=== PATIENT | female | born 1965 | race Caucasian/White ===

== ENCOUNTER 2016-08-07 10:54 | Inpatient (IN) | payer BC ==
[2016-08-07 17:54] LABS: Hematocrit 41 % (35-47); Hemoglobin 13.7 g/dl (12.0-16.0); Mean Corpuscular HGB Conc 34 g/dl (31-36); Mean Corpuscular Hemoglobin 31 pg (27-31); Mean Corpuscular Volume 91 fL (80-97); Mean Platelet Volume 8 um3 (7.4-10.4); Red Blood Count 4.44 10^6/ul (4.0-5.4); Red Cell Distribution Width 13 % (10.5-15)
--- NOTE | 2016-08-07 17:55 | RAD ---
INDICATION: Fever COMPARISON: December 23, 2010 TECHNIQUE: An AP portable view obtained at 1744 hours is submitted. FINDINGS: Bones/Soft Tissues: There are no acute bony findings. Cardiomediastinal: The cardiomediastinal silhouette is normal. Lungs: There are no infiltrates. Pleura: There are no pleural effusions. Other: None IMPRESSION: NO ACTIVE DISEASE.
[2016-08-07 18:11] LABS: Urine Bacteria Absent (Absent); Urine Bilirubin Negative (Negative); Urine Glucose Negative (Negative); Urine Nitrite Negative (Negative)
[2016-08-07 18:13] LABS: Albumin 4.7 g/dL (3.2-5.2); BUN/Creatinine Ratio 16.7 (8-20); Calcium 10.1 mg/dL (8.6-10.3); EGFR African American 121.4 (>60); EGFR Non-African American 94.4 (>60); Globulin 3.3 g/dL (2-4); Potassium 3.6 mmol/L (3.5-5.0); Troponin I 0.01 ng/mL (<0.04)
[2016-08-07] MEDS ORDERED: Iohexol 300* (CONTRAST) 10 ML SDV IV ONE (18:38)
[2016-08-07] MEDS ORDERED: Ondansetron INJ* 2 MG/ML VIAL IV ONE (18:56)
[2016-08-07] MEDS ORDERED: NS 0.9% 1000 ML* 1,000 ML IV ONE (18:56)
[2016-08-07] MEDS ORDERED: Morphine INJ* 4 MG/ML 1 ML CARPUJECT IV ONE (18:56)
[2016-08-07] MEDS ORDERED: Acetaminophen TAB* 325 MG PO ONE (18:57)
--- NOTE | 2016-08-07 19:40 | RAD ---
INDICATION: Left lower quadrant pain COMPARISON: CT December 16, 2013 TECHNIQUE: Axial source images were obtained from the hemidiaphragms to the symphysis pubis following administration of oral and intravenous contrast. 71 mL Omnipaque 300 was utilized. Coronal and sagittal reconstructed images were acquired. Lung bases: The lung bases are clear. Liver: The liver is normal in size. There are no masses. There is no ductal dilatation. Gallbladder: Cholecystectomy. Spleen: The spleen is normal in size. There are no masses. Pancreas: There is no focal pancreatic mass or ductal dilatation. Adrenal glands: There is no evidence of adrenal mass. Kidneys: The kidneys are normal in size and position. There are prompt nephrograms and there is prompt excretion bilaterally. There are no renal parenchymal masses. There is no evidence of nephrolithiasis. Adenopathy: There is no evidence of adenopathy by size criteria. Fluid collections: There are no free or localized fluid collections. Vessels:There are no significant atherosclerotic changes involving the aorta. There is no focal aneurysm. The iliac vessels are normal in caliber. The IVC appears normal. GI tract: The stomach and upper GI tract are unremarkable. There is moderate stool in the a ascending colon. There is focal wall thickening and perienteric infiltrative change at the level of the splenic flexure. This may be inflammatory but a mass is not excluded. There is a tiny punctate focus of air which appears extraluminal and may be related to a contained perforation. The descending colon is very redundant. There are scant diverticula. Suggest follow-up colonoscopy Pelvic organs: The uterus and adnexa appear normal Bladder: There are no bladder masses. Abdominal and pelvic soft tissues: The extraperitoneal abdominal and pelvic soft tissues appear normal.. Osseous structures: There are no acute osseous findings. Other: None IMPRESSION: SUSPECT INFLAMMATORY CHANGE AT THE LEVEL OF THE SPLENIC FLEXURE PERHAPS WITH A CONTAINED PERFORATION. LESS LIKELY THERE IS AN UNDERLYING MASS LESION. SUGGEST FOLLOW-UP COLONOSCOPY
[2016-08-07] MEDS ORDERED: Ciprofloxacin 400MG IVPREMIX(* 400 MG/200 ML BAG IVPB ONE (20:23)
[2016-08-07] MEDS ORDERED: metroNIDAZOLE IV 500 MG/100ML* 500 MG/100 ML BAG IVPB ONE (20:24)
[2016-08-07] MEDS ORDERED: Morphine INJ* 2 MG/ML 1 ML CARPUJECT ONE (21:25)
[2016-08-07] MEDS: Morphine INJ* 2 MG/ML 1 ML CARPUJECT IV PRN (21:33)
[2016-08-07 21:58] LABS: C Reactive Protein 90.77 mg/L (< 5.00)
[2016-08-07] MEDS: Acetaminophen TAB* 325 MG PO PRN (23:07)
[2016-08-07] MEDS: NS 0.9% 1000 ML* 1,000 ML IV SCH (23:17)
[2016-08-07] MEDS: Enoxaparin(*) 40 MG/0.4 ML SYR SUBCUT SCH (23:24)
--- NOTE | 2016-08-07 23:31 | HP ---
ADMISSION HISTORY AND PHYSICAL: DATE OF ADMISSION: 08/08/16 PRIMARY CARE PROVIDER: None. ADMITTING PROVIDER: ISAAC Campo. SUPERVISING PHYSICIAN: Jose Antonio MD.* (DICTATED BY ISAAC CAMPO) CONSULTING SURGEON: Danny Hogue MD CHIEF COMPLAINT: Left lower quadrant abdominal pain. HISTORY OF PRESENT ILLNESS: This is a pleasant 51-year-old female with history of osteoarthritis and irritable bowel syndrome with questionable history of hypothyroidism who presented to the emergency department with complaints of left lower quadrant abdominal pain that started approximately 4 days ago. Her pain has been escalating over the last several days with associated nausea and vomiting, but no diarrhea. Her appetite has been very poor and she has had fevers and chills. She states that about a week ago she had a "stomach bug" but her symptoms resolved and then this pain started. She also noted an episode of constipation about 5 to 6 days ago, which eventually resolved with a very large bowel movement and she noted some bright red blood per rectum without bowel movement. The patient has not had history of diverticulitis or other intraabdominal infection. PAST MEDICAL HISTORY: 1. Osteoarthritis with some chronic pain. 2. Irritable bowel syndrome. 3. Questionable history of hypothyroidism. Apparently, she discontinued her levothyroxine couple of years ago, she was only prescribed 25 mcg at that time. PAST SURGICAL HISTORY: 1. Cholecystectomy. 2. Bunionectomy. HOME MEDICATIONS: 1. Hydrocodone/acetaminophen 5/325 mg 1 tablet p.o. q.4 hours as needed for pain. 2. Naproxen 375 mg p.o. b.i.d. as needed for pain. FAMILY HISTORY: Strong family history of cancers. COPD in her brother. SOCIAL HISTORY: The patient lives at home alone. She has rare alcohol consumption. Denies history of tobacco use. 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 REVIEW OF SYSTEMS: As noted above in the HPI, otherwise negative. PHYSICAL EXAMINATION GENERAL: This is a very pleasant 51-year-old female who appears acutely ill, but is not in any acute distress. INITIAL VITALS: Temperature 98.4 degrees Fahrenheit, pulse 77 beats per minute , respiratory rate 20, oxygen saturation 100% on room air, blood pressure 130/ 80 mmHg, maximum temperature in the emergency department of 100.5 degrees Fahrenheit. HEENT: Head is normocephalic, atraumatic. Mucous membranes are mildly dry. RESPIRATORY: Lungs are clear to auscultation without wheezes, crackles, or rhonchi. CARDIOVASCULAR: Heart has a regular rate and rhythm without murmurs, rubs, or gallops. ABDOMEN: Soft, acutely tender in the left lower quadrant and bowel sounds are present. EXTREMITIES: No lower extremity edema appreciated. SKIN: Limited exam shows no rashes or lesions. PSYCH: The patient is alert and appropriately oriented. LABORATORY EVALUATION: CBC is unremarkable with white blood cell count of 9000 , hemoglobin 13.7 g/dL, and platelet count of 230,000. INR of 1.05, PTT of 28. Comprehensive metabolic panel shows sodium of 134 mmol/L, potassium 3.6 mmol/L, BUN of 11, creatinine 0.66, random glucose of 86 mg/dL. Total bilirubin is normal at 1. AST is elevated at 139, ALT 254, alk phos of 106. Urinalysis is positive for ketones and blood, otherwise unremarkable. IMAGIN. CT of the abdomen and pelvis shows inflammatory change at the level of the splenic flexure, perhaps with a contained perforation. 2. Chest x-ray, no acute disease. 3. EKG shows a normal sinus rhythm. ASSESSMENT AND PLAN: This is a 51-year-old female, who is otherwise quite healthy, who presents with complaints of left lower quadrant abdominal pain, evidence of diverticulitis with perhaps a microperforation appreciated on CT scan. 1. Diverticulitis with microperforation - we will treat with Cipro and Flagyl. Surgical consult is requested and Dr. Hogue will be available to evaluate the patient in the morning. We will start her on a clear liquid diet with pain and antiemetic medications. 2. Transaminitis - this is likely due to her acute bowel process. I am going to repeat a comprehensive metabolic panel tomorrow. 3. Osteoarthritis - continue hydrocodone as needed for pain control. 4. Code status. The patient is full code. 5. DVT prophylaxis. The patient is at moderate risk and will place her on Lovenox 40 mg subcu daily. 6. Healthcare proxy is unknown. DISPOSITION: The patient is being admitted to inpatient for acute diverticulitis with microperforation. Anticipated length of stay is greater than 2 midnights. Pending surgical evaluation tomorrow. ISAAC CAMPO [id number]/[facility] #: [id number] [facility]IDE HOSPITALTayo
--- NOTE | 2016-08-08 00:04 | ED ---
I, Oh,Tena, scribed for Sergei Martin MD on 08/07/16 at 1857 . Abdominal Pain/Female - HPI Summary HPI Summary: This 51 y/o female presents to ED for gradually worsening left sided abd pain since 4 days ago. Pain is constant, and pt reports that pain shoots up all the way to left shoulder today. She denies n/v but states "it hurts to even drink", decreased appetite, and intermittent back pain as well as bright red Blood in stool 3 days ago. No known kidney stone, but PMHx does include arthritis, IBS that is well controlled with diet, and recent colonoscopy with cancerous polyps per pt. She denies any recent travel. Last BM was 4 days ago. Primary care involves Dr. Jean. Pt states that she has been controlling her pain with Naproxen. - History of Current Complaint Chief Complaint: EDAbdPain Stated Complaint: ABD PAIN/DOE Time Seen by Provider: 08/07/16 17:28 Hx Obtained From: Patient, Medical Records Onset/Duration: Gradual Onset Timing: Constant Pain Intensity: 10 Pain Scale Used: 0-10 Numeric Location: Discrete At: LUQ, Discrete At: LLQ Radiates to: Other - left shoulder Character: Dull Aggravating Factor(s): Food Alleviating Factor(s): Nothing Associated Signs and Symptoms: Positive: Constipation, Decreased Appetite. Negative: Nausea, Vomiting, Diarrhea Allergies/Adverse Reactions: Allergies Allergy/AdvReac Type Severity Reaction Status Date / Time Acetaminophen Allergy Severe Constipatio Verified 12/16/13 17:19 [From Tylenol with Codeine n #3] Codeine Allergy Severe Constipatio Verified 12/16/13 17:19 [From Tylenol with Codeine n #3] NSAIDs Allergy Severe Constipatio Verified 12/16/13 17:19 n PMH/Surg Hx/FS Hx/Imm Hx Endocrine/Hematology History: Denies: Hx Diabetes Cardiovascular History: Denies: Hx Hypertension, Hx Pacemaker/ICD GI History: Reports: Hx Hiatal Hernia, Hx Irritable Bowel, Other GI Disorders - Hx IBS History: Denies: Hx Renal Disease - CHILD HAD EPISODE OF KIDNEY FAILURE BUT PROBLEMS SINCE Musculoskeletal History: Reports: Hx Arthritis - l foot Sensory History: Reports: Hx Contacts or Glasses - reading inst given Denies: Hx Hearing Aid Opthamlomology History: Reports: Hx Contacts or Glasses - reading inst given Neurological History: Reports: Other Neuro Impairments/Disorders Psychiatric History: Denies: Hx Anxiety, Hx Panic Disorder - Cancer History Hx Chemotherapy: No Hx Radiation Therapy: No - Surgical History Surgery Procedure, Year, and Place: 2004 [facility] [place]. 2004 [facility] [place]. Lt bunionectomy 12/04/12 Hx Anesthesia Reactions: No Infectious Disease History: No Infectious Disease History: Denies: Traveled Outside the [place] in Last 30 Days - Family History Known Family History: Negative: Other - breast CA - Social History Alcohol Use: None Hx Substance Use: No Substance Use Type: Reports: None Hx Tobacco Use: No Smoking Status (MU): Never Smoked Tobacco Review of Systems Negative: Fever Negative: Erythema Negative: Sore Throat Negative: Chest Pain Negative: Shortness Of Breath, Cough Positive: Abdominal Pain, Other - Constipation. Blood in stool 3 days ago. Negative: Vomiting, Diarrhea, Nausea Negative: dysuria Negative: Myalgia, Edema Neurological: Other - negative for dizziness Negative: Weakness Negative: Anxious, Depressed All Other Systems Reviewed And Are Negative: Yes Physical Exam - Summary Physical Exam Summary: Constitutional: Well-developed, Well-nourished, Alert. (-) Distressed Skin: Warm, Dry HENT: Normocephalic; Atraumatic Eyes: Conjunctiva normal Neck: Musculoskeletal ROM normal neck. (-) JVD, (-) Stridor, (-) Tracheal deviation Cardio: Rhythm regular, rate normal, Heart sounds normal; Intact distal pulses; The pedal pulses are 2+ and symmetric. Radial pulses are 2+ and symmetric. (-) Murmur Pulmonary/Chest wall: Effort normal. (-) Respiratory distress, (-) Wheezes, (-) Rales Abd: Soft, Pt is flinching even before being palpated. (-) distended. Musculoskeletal: (-) Edema Lymph: (-) Cervical adenopathy Neuro: Alert, Oriented x3 Psych: Mood and affect Normal Triage Information Reviewed: Yes Vital Signs On Initial Exam: Initial Vitals Temp Pulse Resp BP Pulse Ox 97.9 F 85 20 133/70 100 08/07/16 10:58 08/07/16 10:58 08/07/16 10:58 08/07/16 10:58 08/07/16 10:58 Vital Signs Reviewed: Yes Diagnostics - Vital Signs Vital Signs Temp Pulse Resp BP Pulse Ox 08/07/16 17:29 98 08/07/16 15:59 100.5 F 87 20 137/75 100 08/07/16 15:10 98.4 F 77 20 130/80 100 08/07/16 13:56 99.9 F 87 16 120/74 100 08/07/16 12:59 99.7 F 82 16 130/72 100 08/07/16 12:25 98.6 F 84 20 115/67 100 08/07/16 10:58 97.9 F 85 20 133/70 100 - Laboratory Lab Results: Lab Results 08/07/16 08/07/16 08/07/16 Range/Units 17:40 17:40 17:40 WBC 9.0 (3.5-10.8) 10^3/ul RBC 4.44 (4.0-5.4) 10^6/ul Hgb 13.7 (12.0-16.0) g/dl Hct 41 (35-47) % MCV 91 (80-97) fL MCH 31 (27-31) pg MCHC 34 (31-36) g/dl RDW 13 (10.5-15) % Plt Count 230 (150-450) 10^3/ul MPV 8 (7.4-10.4) um3 Neut % (Auto) 75.0 (38-83) % Lymph % (Auto) 17.2 L (25-47) % Angelina % (Auto) 7.4 (1-9) % Eos % (Auto) 0.1 (0-6) % Baso % (Auto) 0.3 (0-2) % Absolute Neuts (auto) 6.8 (1.5-7.7) 10^3/ul Absolute Lymphs (auto) 1.6 (1.0-4.8) 10^3/ul Absolute Monos (auto) 0.7 (0-0.8) 10^3/ul Absolute Eos (auto) 0 (0-0.6) 10^3/ul Absolute Basos (auto) 0 (0-0.2) 10^3/ul Absolute Nucleated RBC 0 10^3/ul Nucleated RBC % 0 INR (Anticoag Therapy) 1.05 (0.89-1.11) APTT 28.7 (26.0-36.3) seconds Sodium 134 (133-145) mmol/L Potassium 3.6 (3.5-5.0) mmol/L Chloride 98 L (101-111) mmol/L Carbon Dioxide 30 (22-32) mmol/L Anion Gap 6 (2-11) mmol/L BUN 11 (6-24) mg/dL Creatinine 0.66 (0.51-0.95) mg/dL Est GFR ( Amer) 121.4 (>60) Est GFR (Non-Af Amer) 94.4 (>60) BUN/Creatinine Ratio 16.7 (8-20) Glucose 86 (70-100) mg/dL Lactic Acid (0.5-2.0) mmol/L Calcium 10.1 (8.6-10.3) mg/dL Total Bilirubin 1.00 (0.2-1.0) mg/dL AST 139 H (13-39) U/L ALT 254 H (7-52) U/L Alkaline Phosphatase 106 H (34-104) U/L Troponin I 0.01 (<0.04) ng/mL Total Protein 8.0 (6.4-8.9) g/dL Albumin 4.7 (3.2-5.2) g/dL Globulin 3.3 (2-4) g/dL Albumin/Globulin Ratio 1.4 (1-3) Urine Color Urine Appearance Urine pH (5-9) Ur Specific [place] (1.010-1.030) Urine Protein (Negative) Urine Ketones (Negative) Urine Blood (Negative) Urine Nitrate (Negative) Urine Bilirubin (Negative) Urine Urobilinogen (Negative) Ur Leukocyte Esterase (Negative) Urine WBC (Auto) (Absent) Urine RBC (Auto) (Absent) Ur Squamous Epith Cells (Absent) Urine Bacteria (Absent) Urine Glucose (Negative) 08/07/16 08/07/16 Range/Units 17:40 17:58 WBC (3.5-10.8) 10^3/ul RBC (4.0-5.4) 10^6/ul Hgb (12.0-16.0) g/dl Hct (35-47) % MCV (80-97) fL MCH (27-31) pg MCHC (31-36) g/dl RDW (10.5-15) % Plt Count (150-450) 10^3/ul MPV (7.4-10.4) um3 Neut % (Auto) (38-83) % Lymph % (Auto) (25-47) % Angelina % (Auto) (1-9) % Eos % (Auto) (0-6) % Baso % (Auto) (0-2) % Absolute Neuts (auto) (1.5-7.7) 10^3/ul Absolute Lymphs (auto) (1.0-4.8) 10^3/ul Absolute Monos (auto) (0-0.8) 10^3/ul Absolute Eos (auto) (0-0.6) 10^3/ul Absolute Basos (auto) (0-0.2) 10^3/ul Absolute Nucleated RBC 10^3/ul Nucleated RBC % INR (Anticoag Therapy) (0.89-1.11) APTT (26.0-36.3) seconds Sodium (133-145) mmol/L Potassium (3.5-5.0) mmol/L Chloride (101-111) mmol/L Carbon Dioxide (22-32) mmol/L Anion Gap (2-11) mmol/L BUN (6-24) mg/dL Creatinine (0.51-0.95) mg/dL Est GFR ( Amer) (>60) Est GFR (Non-Af Amer) (>60) BUN/Creatinine Ratio (8-20) Glucose (70-100) mg/dL Lactic Acid 0.6 (0.5-2.0) mmol/L Calcium (8.6-10.3) mg/dL Total Bilirubin (0.2-1.0) mg/dL AST (13-39) U/L ALT (7-52) U/L Alkaline Phosphatase (34-104) U/L Troponin I (<0.04) ng/mL Total Protein (6.4-8.9) g/dL Albumin (3.2-5.2) g/dL Globulin (2-4) g/dL Albumin/Globulin Ratio (1-3) Urine Color Yellow Urine Appearance Clear Urine pH 5.0 (5-9) Ur Specific [place] 1.015 (1.010-1.030) Urine Protein Negative (Negative) Urine Ketones 1+ H (Negative) Urine Blood 1+ H (Negative) Urine Nitrate Negative (Negative) Urine Bilirubin Negative (Negative) Urine Urobilinogen Negative (Negative) Ur Leukocyte Esterase Negative (Negative) Urine WBC (Auto) Trace(0-5/hpf) (Absent) Urine RBC (Auto) 2+(6-10/hpf) H (Absent) Ur Squamous Epith Cells Present H (Absent) Urine Bacteria Absent (Absent) Urine Glucose Negative (Negative) Result Diagrams: 08/07/16 17:40 08/07/16 17:40 Lab Statement: Any lab studies that have been ordered have been reviewed, and results considered in the medical decision making process. - Radiology CXR Xray Interpretation: No Acute Changes Radiology Interpretation Completed By: Radiologist - CT Ab/P CT Interpretation: Positive (See Comments) - SUSPECT INFLAMMATORY CHANGE AT THE LEVEL OF THE SPLENIC FLEXURE PERHAPS WITH A CONTAINED PERFORATION. LESS LIKELY THERE IS AN UNDERLYING MASS LESION. SUGGEST FOLLOW-UP COLONOSCOPY CT Interpretation Completed By: Radiologist - EKG 1806 Cardiac Rate: NL - 84 bpm EKG Rhythm: Sinus Rhythm ST Segment: Normal EKG Interpretation: Normal axis Re-Evaluation - Re-Evaluation First Eval Re-Evaluation Time: 20:43 Comment: Pt is updated with plan of care involving hospital admission. She is agreeable. Abdominal Pain Fem Course/Dx - Course Course Of Treatment: This 51 y/o female presents to ED with chief complaint of left sided abd pain and decreased appetite. Pt denies any nausea, but reports "pain" with PO fluid/food intake. PMHx does includes IBS that is diet controlled. Bloodwork is wnl except elevated LFT. CT Ab/P indicates suspected inflammatory change at the level of the splenic flexure with a contained perforation. Physical exam findings, blood work, and imaging studies are shared with Dr. Hogeu, who recommends hospital admission and IV abx treatment. - Diagnoses Provider Diagnoses: Diverticulitis of colon with perforation - Provider Notifications Discussed Care Of Patient With: Dr. Hogue (Surgery) at 2027 PM -- recommends hospital admission and IV abx. Time Discussed With Above Provider: 20:28 Instructed by Provider To: Admit As Inpatient Discharge - Discharge Plan Condition: Stable Disposition: ADMITTED TO [facility] Referrals: No Primary Care Phys,NOPCP [Primary Care Provider] - The documentation as recorded by the scribe, Oh,Soohyun accurately reflects the service I personally performed and the decisions made by me, Sergei Martin MD.
[2016-08-08] MEDS: Morphine INJ* 2 MG/ML 1 ML CARPUJECT IV PRN ×4 (01:50→21:23)
[2016-08-08] MEDS: metroNIDAZOLE IV 250 MG/50ML* 50 ML IVPB SCH ×3 (04:36→21:21)
[2016-08-08] MEDS: Acetaminophen TAB* 325 MG PO PRN ×2 (04:48→19:36)
[2016-08-08 06:21] LABS: Hematocrit 33 % (35-47); Mean Corpuscular HGB Conc 34 g/dl (31-36); Mean Corpuscular Hemoglobin 31 pg (27-31); Mean Corpuscular Volume 92 fL (80-97); Mean Platelet Volume 8 um3 (7.4-10.4); Red Blood Count 3.56 10^6/ul (4.0-5.4); Red Cell Distribution Width 13 % (10.5-15); White Blood Count 6.6 10^3/ul (3.5-10.8)
[2016-08-08 06:38] LABS: Albumin 3.5 g/dL (3.2-5.2); BUN/Creatinine Ratio 22.6 (8-20); C Reactive Protein 73.4 mg/L (< 5.00); Calcium 8.9 mg/dL (8.6-10.3); EGFR African American 130.5 (>60); EGFR Non-African American 101.5 (>60); Globulin 2.6 g/dL (2-4); Potassium 3.8 mmol/L (3.5-5.0); Total Bilirubin 0.8 mg/dL (0.2-1.0); Total Protein 6.1 g/dL (6.4-8.9)
--- NOTE | 2016-08-08 08:30 | RAD ---
Indication: Right upper quadrant pain. Real-time sonography of the right upper quadrant was performed. The liver measures 19 cm in length. There are no focal lesions or intrahepatic ductal dilatation noted. The common duct measures 4 mm. The patient is status post cholecystectomy. The right kidney measures 10.8 x 3.5 x 4.8 cm with no hydronephrosis. The pancreas head, neck and proximal body demonstrates no mass or pancreatic ductal dilatation. The aorta and inferior vena cava are unremarkable. IMPRESSION: Patient is status post cholecystectomy. No biliary duct dilatation is noted.
[2016-08-08] MEDS: Ciprofloxacin 400MG IVPREMIX(* 400 MG/200 ML BAG IVPB SCH ×2 (10:32→22:39)
[2016-08-08 13:17] LABS: TSH (Thyroid Stimulating Horm) 6.2 mcIU/mL (0.34-5.60)
[2016-08-08] MEDS: NS 0.9% 1000 ML* 1,000 ML IV SCH (13:30)
--- NOTE | 2016-08-08 14:45 | CONS ---
SURGICAL CONSULTATION: DATE OF CONSULT: 08/08/16. DATE OF ADMISSION: 08/08/16 by the hospitalist service. LOCATION: This patient is seen at [facility] in room 401. CONSULTING SURGEON: Dr. Danny Hogue (dictated by Kehinde Linn NP). CHIEF COMPLAINT: Left mid abdominal pain. HISTORY OF PRESENT ILLNESS: The patient is a pleasant 51-year-old female with a history of irritable bowel syndrome and colon polyps, who presented to the emergency department with complaints of left mid abdominal pain that started approximately 4 days ago. Her pain escalated over the last several days with associated nausea and vomiting, but no diarrhea. She had minimal appetite and felt chilled. She states that about a week ago, she had a "stomach bug" but her symptoms resolved and then the current pain started. She was diagnosed with irritable bowel syndrome over 5 years ago and states that she has changed her diet with improvement of symptoms; she underwent a colonoscopy by Dr. Jean in June 2016 and she states that revealed a benign polyp; 5 years ago, she had weight loss and abdominal pain and underwent colonoscopy at that time and states that she had cancerous polyps, removed and therefore was recommended for a followup, which was done in June 2016. Today, she feels mildly nauseated, but has been able to tolerate clear liquids and has not had any vomiting; she had a small bowel movement today that she states was a combination of liquid and formed and it was her first bowel movement in 3 days. She states that she has noted some bright red blood per rectum without a bowel movement. A CAT scan of the abdomen and pelvis on admission revealed inflammatory change at the level of the splenic flexure, perhaps with a contained perforation, less likely there is an underlying mass lesion and followup colonoscopy was suggested by the radiologist. Her white count was within normal limits; CRP was elevated and comprehensive metabolic panel revealed elevated LFTs. Urinalysis was positive for ketones and blood, otherwise unremarkable. She was admitted to the hospitalist service and was treated with Cipro and Flagyl for possible diverticulitis with microperforation. Surgical consultation was requested. PAST MEDICAL HISTORY: Significant for irritable bowel syndrome for at least 5 years; osteoarthritis specifically in the left shoulder region associated with chronic pain. PAST SURGICAL HISTORY: Laparoscopic cholecystectomy in [place], [place], over 10 years ago; bunionectomy. OB HISTORY: 1, 1. Last menstrual period February 2016. She is up- to-date with pelvic and Pap smear through Dr. Benson's office and states that she also had a breast exam and mammogram within the past year, which was within normal limits. MEDICATIONS: 1. Naproxen 375 mg p.o. b.i.d. as needed for left shoulder pain. 2. She states that she had a prescription for hydrocodone 5/[address] Weaver for her shoulder pain and she took one of those for the abdominal pain before she came to the hospital. ALLERGIES: ACETAMINOPHEN, CODEINE, and NSAIDS, unspecified reactions. FAMILY HISTORY: Mother , age 33, with a history of stomach cancer; father in a motor vehicle accident; one brother with a history of pancreatic cancer; one sister with a history of some type of blood cancer. SOCIAL HISTORY: She lives at home alone; she is employed as an administrative support assistant at a [employer]; she has rare alcohol consumption and denies the use of other substances and denies the history of tobacco use. REVIEW OF SYSTEMS: As noted above in history of present illness and she denies any chest pain or palpitations, she denies any shortness of breath; she denies any acid reflux; she denies dysuria; she denies any previous anesthesia complications; she denies any history of deep vein thrombosis or pulmonary embolism. PHYSICAL EXAM: General Survey: The patient is a 51-year-old female, well- developed, well-nourished, in no acute distress, but she is ill-appearing. Vitals: Temperature 97.9, pulse 70 and regular, respiratory rate 16, O2 saturation on room air 98%, blood pressure 100/60. HEENT: Benign. Neck: Supple. No cervical lymphadenopathy. Lungs: Breath sounds bilaterally clear and equal. Heart: Regular rate and rhythm. No murmurs, rubs, or gallops. Abdomen: Active bowel sounds, soft, and nondistended, very tender in the left upper quadrant and left mid abdomen with mild guarding with deep palpation. No rebound tenderness. No obvious masses or organomegaly, but exam is limited by discomfort. Pelvic and rectal exams deferred. Extremities are nontender. No edema or skin ulcerations. Neurologic: Alert and oriented x3. IMPRESSION: Left upper quadrant and left mid abdominal pain; CT of the abdomen and pelvis shows inflammatory change at the level of the splenic flexure, perhaps with contained perforation. PLAN: Continue IV antibiotics as ordered by the hospitalist service. Continue clear liquid diet. Consult with GI would be helpful and I spoke with Dr. Connelly and she agrees and she will put in the consult for Dr. Maciel who is bond analyst today and the patient knows that she most likely will need another colonoscopy. KEHINDE LINN NP CC: Dr. Hogue, [facility] [id number]/[facility] #: [id number] MTDD
--- NOTE | 2016-08-08 17:18 | PN ---
Subjective Date of Service: 08/08/16 Interval History: HOSPITALIST PROGRESS NOTE Patient seen and examined at bedside. She feels better today. Still has some mild LLQ discomfort, but denies N/V and agrees to advance her diet. Family History: Unchanged from Admission Social History: Unchanged from Admission Past Medical History: Unchanged from Admission Objective Active Medications: Acetaminophen (Tylenol Tab*) 650 mg PO Q4H PRN PRN Reason: FEVER/PAIN Last Admin: 08/08/16 04:48 Dose: 650 mg Enoxaparin Sodium (Lovenox(*)) 40 mg SUBCUT Q24H [facility] Last Admin: 08/07/16 23:24 Dose: 40 mg Sodium Chloride (Ns 0.9% 1000 Ml*) 1,000 mls @ 100 mls/hr IV PER RATE [facility] Last Admin: 08/08/16 13:30 Dose: 100 mls/hr Ciprofloxacin/Dextrose (Cipro 400 Mg Ivpremix(*)) 400 mg in 200 mls @ 200 mls/ hr IVPB Q12H [facility] Last Admin: 08/08/16 10:32 Dose: 200 mls/hr Metronidazole/Sodium Chloride (Flagyl 250 Mg Ivpb*) 50 mls @ 50 mls/hr IVPB Q8H [facility] Last Admin: 08/08/16 13:30 Dose: 50 mls/hr Morphine Sulfate (Morphine Inj (Syringe)*) 2 mg IV Q4H PRN PRN Reason: PAIN Last Admin: 08/08/16 05:49 Dose: 2 mg Ondansetron HCl (Zofran Inj*) 4 mg IV Q4H PRN PRN Reason: NAUSEA/VOMITING Vital Signs 08/08/16 08/08/16 08/08/16 06:49 07:16 15:26 Temperature 97.9 F 98.4 F Pulse Rate 71 65 Respiratory 18 16 16 Rate Blood Pressure 100/60 104/58 (mmHg) O2 Sat by Pulse 98 97 Oximetry Oxygen Devices in Use Now: None Appearance: Pleasant lady sitting up in bed in NAD. Eyes: No Scleral Icterus Ears/Nose/Mouth/Throat: Mucous Membranes Moist Neck: Trachea Midline Respiratory: Symmetrical Chest Expansion and Respiratory Effort, Clear to Auscultation Cardiovascular: NL Sounds; No Murmurs; No JVD, RRR Abdominal: - - soft, mild LLQ tenderness, no guarding, no rebound, BS+ and increased Extremities: No Edema Neurological: Alert and Oriented x 3, NL Muscle Strength and Tone Lines/Tubes/Other Access: Clean, Dry and Intact Peripheral IV Nutrition: Taking PO's Result Diagrams: 08/08/16 05:59 08/08/16 05:59 Assess/Plan/Problems-Billing Assessment: Mrs. Rey is 51yo F with PMH of osteoarthritis, IBS, who presented to ED with c/o abdominal pain, found to have diverticulitis. - Patient Problems (1) Acute diverticulitis Comment: - CT reviewed - shows inflammatory changes at the level of the splenic flexure with possible contained perforation. - Surgery consult appreciated. - GI consult requested - patient states she had a colonoscopy done last month with Dr. Jean as f/u for polyps (?malignant) diagnosed 5 years ago. - Continue IVF and Cipro/Flagyl. - Advance to full liquid diet. (2) Transaminitis Comment: - Probably secondary to infection - trending down. - RUQ US - patient is s/p cholecystectomy and has no biliary duct dilatation. (3) Osteoarthritis Comment: - Continue hydrocodone/APAP PRN. (4) DVT prophylaxis Comment: - Lovenox. (5) Full code status Status and Disposition: Inpatient for IV antibiotics.
[2016-08-08] MEDS: HYDROcodone/ACETAMIN 5-325 MG* 1 TAB PO PRN (17:56)
[2016-08-08] MEDS: Enoxaparin(*) 40 MG/0.4 ML SYR SUBCUT SCH (21:27)
[2016-08-09] MEDS: Ondansetron INJ* 2 MG/ML VIAL IV PRN ×2 (00:12→22:47)
[2016-08-09] MEDS: metroNIDAZOLE IV 250 MG/50ML* 50 ML IVPB SCH ×3 (04:37→20:22)
[2016-08-09] MEDS: NS 0.9% 1000 ML* 1,000 ML IV SCH (04:37)
[2016-08-09 06:43] LABS: Albumin 3.3 g/dL (3.2-5.2); BUN/Creatinine Ratio 11.3 (8-20); C Reactive Protein 38.01 mg/L (< 5.00); Calcium 8.7 mg/dL (8.6-10.3); EGFR African American 111.6 (>60); EGFR Non-African American 86.8 (>60); Globulin 2.5 g/dL (2-4); Potassium 3.8 mmol/L (3.5-5.0); Total Bilirubin 0.4 mg/dL (0.2-1.0); Total Protein 5.8 g/dL (6.4-8.9)
[2016-08-09] MEDS: Morphine INJ* 2 MG/ML 1 ML CARPUJECT IV PRN (08:10)
[2016-08-09] MEDS: Ciprofloxacin 400MG IVPREMIX(* 400 MG/200 ML BAG IVPB SCH ×2 (09:23→21:39)
[2016-08-09] MEDS: HYDROcodone/ACETAMIN 5-325 MG* 1 TAB PO PRN ×2 (09:28→17:21)
--- NOTE | 2016-08-09 15:25 | PN ---
Subjective Date of Service: 08/09/16 Interval History: HOSPITALIST PROGRESS NOTE Patient seen and examined at bedside. She had some pain when drinking juices, but tolerated full liquid diet well. No N/V, still has some diarrhea. Family History: Unchanged from Admission Social History: Unchanged from Admission Past Medical History: Unchanged from Admission Objective Active Medications: Acetaminophen (Tylenol Tab*) 650 mg PO Q4H PRN PRN Reason: FEVER/PAIN Last Admin: 08/08/16 19:36 Dose: 650 mg Acetaminophen/Hydrocodone Bitart ([place] 5-325 Tab*) 1 tab PO Q4H PRN PRN Reason: PAIN Last Admin: 08/09/16 09:28 Dose: 1 tab Enoxaparin Sodium (Lovenox(*)) 40 mg SUBCUT Q24H [facility] Last Admin: 08/08/16 21:27 Dose: 40 mg Ciprofloxacin/Dextrose (Cipro 400 Mg Ivpremix(*)) 400 mg in 200 mls @ 200 mls/ hr IVPB Q12H [facility] Last Admin: 08/09/16 09:23 Dose: 200 mls/hr Metronidazole/Sodium Chloride (Flagyl 250 Mg Ivpb*) 50 mls @ 50 mls/hr IVPB Q8H [facility] Last Admin: 08/09/16 13:47 Dose: 50 mls/hr Morphine Sulfate (Morphine Inj (Syringe)*) 2 mg IV Q4H PRN PRN Reason: PAIN Last Admin: 08/09/16 08:10 Dose: 2 mg Ondansetron HCl (Zofran Inj*) 4 mg IV Q4H PRN PRN Reason: NAUSEA/VOMITING Last Admin: 08/09/16 00:12 Dose: 4 mg Vital Signs 08/08/16 08/09/16 08/09/16 23:38 07:16 07:35 Temperature 98.1 F 98.0 F Pulse Rate 66 67 Respiratory 16 16 18 Rate Blood Pressure 99/60 116/70 (mmHg) O2 Sat by Pulse 98 98 98 Oximetry Oxygen Devices in Use Now: None Appearance: Pleasant lady lying in bed in NAD. Eyes: No Scleral Icterus Ears/Nose/Mouth/Throat: Mucous Membranes Moist Neck: Trachea Midline Respiratory: Symmetrical Chest Expansion and Respiratory Effort, Clear to Auscultation Cardiovascular: RRR - Normal S1 and S2 Abdominal: - - Soft, LUQ tenderness, NG, NR, BS+ Extremities: No Edema Neurological: Alert and Oriented x 3, NL Muscle Strength and Tone Lines/Tubes/Other Access: Clean, Dry and Intact Peripheral IV Nutrition: Taking PO's Result Diagrams: 08/08/16 05:59 08/09/16 05:53 Assess/Plan/Problems-Billing Assessment: Mrs. Rey is 51yo F with PMH of osteoarthritis, IBS, who presented to ED with c/o abdominal pain, found to have diverticulitis. - Patient Problems (1) Acute diverticulitis Comment: - CT reviewed - shows inflammatory changes at the level of the splenic flexure with possible contained perforation. - Surgery consult appreciated. - GI consult requested - patient states she had a colonoscopy done last month with Dr. Jean as f/u for polyps (?malignant) diagnosed 5 years ago. - Continue IVF and Cipro/Flagyl. - Advance to low fiber diet. (2) Transaminitis Comment: - Probably secondary to infection - trending down. - RUQ US - patient is s/p cholecystectomy and has no biliary duct dilatation. (3) Osteoarthritis Comment: - Continue hydrocodone/APAP PRN. (4) DVT prophylaxis Comment: - Lovenox. (5) Full code status Status and Disposition: Inpatient for IV antibiotics. Anticipate d/c in 1-2 days.
--- NOTE | 2016-08-09 17:06 | CONS ---
CONSULTATION REPORT: DATE OF CONSULT: 08/09/16 REQUESTING PHYSICIAN: Dr. Connelly. INDICATION: Abdominal pain. NARRATIVE: Ms. Rey is a pleasant 51-year-old female who is well known to myself. I just perfor med a colonoscopy 44 days ago on her. The colonoscopy was unremarkable except for a single colon po lyp that was removed and was benign. She does have a very difficult and twisted colon. The patient states that few days prior to presentation, she developed abdominal pain; it was mostly on the left side of the abdomen. She did have some fever, some loose stools, and nausea. The pain persisted. This did feel different than her typical irritable bowel syndrome and she presented to the emergenc y room. A CT showed inflammation of the splenic flexure with possible contained perforation. She w as started on IV antibiotics and since that point has improved dramatically. She states that she fe els much better at this point. She is almost pain-free. She is still having slightly loose stools, however, no blood. PAST MEDICAL HISTORY: Significant for osteoarthritis, irritable bowel syndrome. PAST SURGICAL HISTORY: Includes bunionectomy and cholecystectomy. MEDICATIONS UPON ADMISSION: Include: 1. Naproxen. 2. Hydrocodone. SOCIAL HISTORY: Rare alcohol. No history of tobacco abuse. No IV drugs. REVIEW OF SYSTEMS: Twelve systems were reviewed, other than that mentioned in the HPI were unremark able. PHYSICAL EXAM: Temperature is 98.0, blood pressure is 116/70, pulse of 67. General: Well-appearing female, lying flat in bed. Alert and oriented, pleasant, fluent. HEENT: Mucous membranes are [address] without lesions, ulcers, or exudate. Neck is supple. Trachea is midline. Head is normocephalic, atraumatic. Heart: Regular rate and rhythm. Lungs: Clear to auscultation. Abdomen: Soft. No r ebound, no guarding, no masses. Positive bowel sounds, nontender. Skin is warm and dry. DIAGNOSTIC STUDIES/LAB DATA: Of note, her white count went from 9 to 6.6, hemoglobin is 11. ALT is slightly elevated at 112. CRP is 38.01. Electrolytes were all within normal limits. CT: Please see the HPI. ASSESSMENT AND PLAN: Ms. Rey is a very pleasant 51-year-old female who presents with abdominal pain, CT showing inflammation around the splenic flexure with a possible contained microperforation. She has been started on IV antibiotics and has improved dramatically. Most likely scenario would be diverticulitis. She did have a colonoscopy just 44 days ago and no ominous findings were seen at all. I doubt that this is ischemic colitis. I doubt that this is inflammatory bowel disease. I wo uld recommend we continue with the IV antibiotics. If she continues to improve, to transition her t o oral antibiotics and she can be discharged hopefully within the next 48 hours. [id number]/[facility] #: [id number]
[2016-08-09] MEDS: Enoxaparin(*) 40 MG/0.4 ML SYR SUBCUT SCH (21:42)
[2016-08-10] MEDS: metroNIDAZOLE IV 250 MG/50ML* 50 ML IVPB SCH (04:50)
[2016-08-10] MEDS: HYDROcodone/ACETAMIN 5-325 MG* 1 TAB PO PRN (06:38)
[2016-08-10 08:27] VITALS: BP 113/74
[2016-08-10] MEDS: Ciprofloxacin 400MG IVPREMIX(* 400 MG/200 ML BAG IVPB SCH (10:27)
[2016-08-10] MEDS: Ondansetron INJ* 2 MG/ML VIAL IV PRN (12:04)
[2016-08-10] MEDS ORDERED: Amoxicillin/Clavulanate TAB* 875 MG PO SCH (14:00)
[2016-08-10] MEDS ORDERED: Docusate CAP* 100 MG PO SCH (21:00)
--- NOTE | 2016-08-11 13:30 | DS ---
DISCHARGE SUMMARY: DATE OF ADMISSION: 08/08/16 DATE OF DISCHARGE: 08/10/16 PRIMARY CARE PROVIDER: Bernard Delarosa NP RN CHEMICAL DEPENDENCY: Dr. Jean. CONSULTING SURGEON: Dr. Hogue. DISCHARGE DIAGNOSES: 1. Acute diverticulitis. 2. Transaminitis. SECONDARY DIAGNOSES: 1. Osteoarthritis. 2. Irritable bowel syndrome. MEDICATION LIST: 1. Naproxen 375 mg p.o. b.i.d. p.r.n. pain. 2. Hydrocodone/acetaminophen 5/325 mg 1 tablet p.o. q.4 hours p.r.n. severe pain. 3. Colace 100 mg p.o. b.i.d. 4. Acetaminophen 650 mg p.o. q.4 hours p.r.n. pain or fever. 5. Augmentin 875 mg p.o. b.i.d. for 10 more days. HOSPITAL COURSE: Ms. Rey is a 51-year-old lady with a past medical history as stated above that presented to the emergency room on August 08 with complaints of left-sided abdominal pain that started 4 days prior to admission. The pain was associated with nausea and vomiting, but initially she had no diarrhea. For more details about her presentation, I refer you to her history and physical. In the emergency room, the patient had a CT of the abdomen and pelvis that suspected inflammatory change at the level of the splenic flexure, perhaps with a contained perforation. Less likely, there is an underlying mass lesion. She was admitted under the impression of acute diverticulitis and started on IV antibiotics. Her blood test also showed mild elevation of transaminases with an AST of 139, ALT of 254. Abdomen ultrasound showed the patient is status post cholecystectomy and no biliary dilatation was noted. The impression was that her transaminitis was likely associated to her infectious insult. The patient was seen in consultation by General Surgery (Dr. Hogue). His impression was the patient had acute diverticulitis and the recommendation was to continue IV antibiotics. Initially, there was recommendation for colonoscopy after the resolution of this episode, but she was seen in consultation by Gastroenterology (Dr. Jean) and he felt that the patient just had a colonoscopy 44 days ago and no ominous findings were seen at all. He did not think that this represented ischemic colitis or inflammatory bowel disease. He agreed that this was likely acute diverticulitis and he agreed with treatment with antibiotics. The patient had progressive improvement of her abdominal pain. She was able to tolerate a low-fiber diet and today she was thought to be stable to be discharged home. PHYSICAL EXAMINATION: Vital Signs: Temperature 98.2, heart rate 72, respiratory rate 16, oxygen saturation 97% on room air, blood pressure 113/74. General: The patient is a pleasant, middle-aged lady, lying in bed, in no acute distress. CVS: Normal S1, S2. Regular rate and rhythm. Chest: Breath sounds bilaterally with no added sounds. Abdomen is soft with mild left upper quadrant tenderness. No guarding, no rebound. Bowel sounds are present. Extremities: No edema. Neuro: She is alert, awake, and oriented x3. Able to move all 4 extremities. DIET: Low-fiber diet for 2 weeks, then back to her regular diet. ACTIVITY: As tolerated. DISPOSITION: To home. STATUS WHILE IN THE HOSPITAL: Inpatient. Please keep in the mind this is a summarized version of this patient's hospital stay. If you need more information, please feel free to call me at or please obtain the full medical records. The patient has an appointment to follow up with Bernard Delarosa NP, on August 21 at 8:10 a.m. TIME SPENT: Approximately 45 minutes was spent to complete this discharge. CC: Bernard Delarosa NP; Dr. Jean; Dr. Hogue * [id number]/[facility] #: [id number] MTDD
== END 2016-08-10 18:15 | disposition home or self-care (01) | DRG 244 ==
LOC: ED 10:54 → MED 21:57
PROVIDERS: ADMIT Hospitalist; ATTEND Internal Medicine
DX: K57.20 Diverticulitis of large intestine with perforation and abscess without bleeding (principal); G89.29 Other chronic pain; M19.90 Unspecified osteoarthritis, unspecified site; K58.9 Irritable bowel syndrome, unspecified; R74.0 Nonspecific elevation of levels of transaminase and lactic acid dehydrogenase [LDH]; Z90.49 Acquired absence of other specified parts of digestive tract; Z80.9 Family history of malignant neoplasm, unspecified; Z82.5 Family history of asthma and other chronic lower respiratory diseases; Z72.89 Other problems related to lifestyle; Z88.8 Allergy status to other drugs, medicaments and biological substances; Z88.5 Allergy status to narcotic agent; Z80.7 Family history of other malignant neoplasms of lymphoid, hematopoietic and related tissues; Z80.0 Family history of malignant neoplasm of digestive organs
CPT/HCPCS: 36415; 71010; 74177; 76705; 80053; 81003; 81015; 83605; 84443; 84484; 85025; 85610; 85730; 86140; 87040; 93005; 99283; A9270-GY; J0744; J1650; J2270; J2405; J3490; Q9967

== ENCOUNTER 2016-11-01 10:05 | Emergency (ER) | payer BC ==
[2016-11-01 11:15] VITALS: BP 136/76
--- NOTE | 2016-11-01 13:27 | UC ---
Throat Pain/Nasal Mauro HPI - HPI Summary HPI Summary: SORE THROAT COUGH AND FEVER FOR THREE DAYS. - History of Current Complaint Chief Complaint: UCGeneralIllness Stated Complaint: THROAT PAIN FEVER Time Seen by Provider: 11/01/16 11:02 Hx Obtained From: Patient Onset/Duration: Gradual Onset, Lasting Days, Still Present Severity: Moderate Pain Intensity: 0 Pain Scale Used: 0-10 Numeric Cough: Nonproductive Associated Signs & Symptoms: Positive: Hoarseness, Sinus Discomfort, Nasal Discharge, Fever - Epiglottits Risk Factors Epiglottis Risk Factors: Negative - Allergies/Home Medications Allergies/Adverse Reactions: Allergies Allergy/AdvReac Type Severity Reaction Status Date / Time Acetaminophen Allergy Severe Constipatio Verified 11/01/16 11:15 [From Tylenol with Codeine n #3] Codeine Allergy Severe Constipatio Verified 11/01/16 11:15 [From Tylenol with Codeine n #3] NSAIDs Allergy Severe Constipatio Verified 11/01/16 11:15 n Home Medications: Home Medications NK [No Home Medications Reported] 11/01/16 [History Confirmed 11/01/16] PMH/Surg Hx/FS Hx/Imm Hx Previously Healthy: Yes Endocrine History Of: Denies: Diabetes Cardiovascular History Of: Denies: Hypertension, Pacemaker/ICD Respiratory History Of: Reports: Bronchitis - not recently GI/ History Of: Denies: Renal Disease - CHILD HAD EPISODE OF KIDNEY FAILURE BUT PROBLEMS SINCE Neurological History Of: Comment Only: CVA - Hx PTSD Psychological History Of: Denies: Anxiety Cancer History Of: Denies: Breast Cancer - Surgical History Surgical History: Yes Surgery Procedure, Year, and Place: 2004 RT & [facility]. 2004 [facility]. bunionectomy 12/04/12 - Family History Known Family History: Negative: Other - breast CA - Social History Occupation: Employed Full-time Lives: With Family Alcohol Use: Occasionally Alcohol Amount: "A Glass of wine every 3 and 1/2 weeks" Substance Use Type: None Smoking Status (MU): Never Smoked Tobacco - Immunization History Most Recent Influenza Vaccination: pt declines until "I'm less sick" Most Recent Tetanus Shot: unk Most Recent Pneumonia Vaccination: unk Review of Systems Constitutional: Fever, Chills, Fatigue Skin: Negative Eyes: Negative ENT: Sore Throat Respiratory: Cough Cardiovascular: Negative Gastrointestinal: Negative Genitourinary: Negative Motor: Negative Neurovascular: Negative Musculoskeletal: Negative Neurological: Negative Psychological: Negative All Other Systems Reviewed And Are Negative: Yes Physical Exam Triage Information Reviewed: Yes Appearance: Well-Appearing, No Pain Distress, Well-Nourished Vital Signs: Initial Vital Signs Temp 97.8 F 11/01/16 11:10 Pulse 70 11/01/16 11:10 Resp 18 11/01/16 11:10 BP 136/76 11/01/16 11:10 Pulse Ox 99 11/01/16 11:10 Vital Signs Reviewed: Yes Eye Exam: Normal ENT: Positive: Hearing grossly normal, Nasal congestion, TM bulging, TM dull Dental Exam: Normal Neck exam: Normal Neck: Positive: Supple, Nontender, No Lymphadenopathy. Negative: Nuchal Rigidity, Enlarged Nodes @ Respiratory Exam: Normal Respiratory: Positive: Chest non-tender, Lungs clear, Normal breath sounds, No respiratory distress, No accessory muscle use Cardiovascular Exam: Normal Cardiovascular: Positive: RRR, No Murmur, Pulses Normal Abdominal Exam: Normal Musculoskeletal Exam: Normal Musculoskeletal: Positive: Strength Intact, ROM Intact Neurological Exam: Normal Psychological Exam: Normal Psychological: Positive: Normal Response To Family Skin Exam: Normal Throat Pain/Nasal Course/Dx - Differential Dx/Diagnosis Differential Diagnosis/HQI/PQRI: Pharyngitis, Sinusitis, URI Provider Diagnoses: UPPER RESPIRATORY INFECTION Discharge - Discharge Plan Condition: Stable Disposition: HOME Patient Education Materials: Tonsillitis (ED), Viral Syndrome (ED) Forms: *Work Release Referrals: Bernard Delarosa NP [Primary Care Provider] -
== END 2016-11-01 12:51 | disposition home or self-care (01) ==
LOC: UCEAST 10:05
DX: J06.9 Acute upper respiratory infection, unspecified (principal); Z88.4 Allergy status to anesthetic agent; Z88.5 Allergy status to narcotic agent; Z87.09 Personal history of other diseases of the respiratory system
CPT/HCPCS: 87502; 87651; 99211; G0463

== ENCOUNTER 2019-04-03 10:38 | Emergency (ER) | payer SELFPAY ==
[2019-04-03 11:01] VITALS: BP 132/79
--- NOTE | 2019-04-03 12:33 | UC ---
Shoulder Pain HPI - HPI Summary HPI Summary: SUDDEN ONSET OF RIGHT SHOULDER PAIN ABOUT 1 MONTH AGO. NO DISCRETE INJURY OR TRAUMA THAT SHE CAN IDENTIFY. NO PREVIOUS SHOULDER INJURY. NO NUMBNESS OR TINGLING. - History of Current Complaint Chief Complaint: UCUpperExtremity Stated Complaint: SHOULDER PAIN Time Seen by Provider: 04/03/19 11:45 Hx Obtained From: Patient Onset/Duration: Sudden Onset, Lasting Weeks, Still Present Timing: Constant Severity Initially: Moderate Severity Currently: Moderate Location Of Pain: Is Discrete @ - right shoulder Pain Intensity: 10 Pain Scale Used: 0-10 Numeric Character: Sharp Aggravating Factor(s): Movement Alleviating Factor(s): Rest Associated Signs And Symptoms: Positive: Negative Related History: Dominant Hand Right - Allergies/Home Medications Allergies/Adverse Reactions: Allergies Allergy/AdvReac Type Severity Reaction Status Date / Time NSAIDS (Non-Steroidal Allergy Constipatio Verified 04/03/19 11:05 Anti-Inflamma n acetaminophen with codeine #3 Allergy Constipatio Uncoded 04/03/19 11:05 n PMH/Surg Hx/FS Hx/Imm Hx Previously Healthy: Yes - Surgical History Surgical History: Yes Surgery Procedure, Year, and Place: 2004 RT & [facility]. 2004 [facility]. Lt bunionectomy 12/04/12 - Family History Known Family History: Positive: Other - breast CA - Social History Alcohol Use: Occasionally Alcohol Amount: "A Glass of wine every 3 and 1/2 weeks" Substance Use Type: None Smoking Status (MU): Never Smoked Tobacco - Immunization History Most Recent Influenza Vaccination: pt declines until "I'm less sick" Most Recent Tetanus Shot: unk Most Recent Pneumonia Vaccination: unk Review of Systems All Other Systems Reviewed And Are Negative: Yes Constitutional: Positive: Negative Skin: Positive: Negative Respiratory: Positive: Negative Cardiovascular: Positive: Negative Gastrointestinal: Positive: Negative Musculoskeletal: Positive: Arthralgia, Decreased ROM Physical Exam Triage Information Reviewed: Yes Appearance: Well-Appearing, No Pain Distress, Well-Nourished Vital Signs: Initial Vital Signs Temp 98.1 F 04/03/19 10:55 Pulse 67 04/03/19 10:55 Resp 16 04/03/19 10:55 BP 132/79 04/03/19 10:55 Pulse Ox 100 04/03/19 10:55 Vital Signs Reviewed: Yes Eyes: Positive: Conjunctiva Clear ENT: Positive: Hearing grossly normal Neck: Positive: Supple Respiratory: Positive: No respiratory distress, No accessory muscle use Cardiovascular: Positive: Pulses Normal Abdomen Description: Positive: Soft Musculoskeletal: Positive: No Edema, ROM Limited @ - RIGHT SHOULDER - BOTH ACTIVE AND PASSIVE, Other: - NO DISCRETE BONY TENDERNESS Neurological: Positive: Alert Psychological: Positive: Age Appropriate Behavior Skin: Negative: Rashes Diagnostics - Radiology RIGHT SHOULDER XRAYS Radiology Interpretation Completed By: Radiologist Summary of Radiographic Findings: FINDINGS SUGGESTIVE OF CALCIFIC TENDINITIS. Shoulder Course/Dx - Differential Dx/Diagnosis Provider Diagnosis: Calcific tendinitis of right shoulder Discharge ED - Sign-Out/Discharge Documenting (check all that apply): Patient Departure All imaging exams completed and their final reports reviewed: Yes - Discharge Plan Condition: Stable Disposition: HOME Patient Education Materials: Calcific Tendinitis (ED) Referrals: Columba Hodges MD [Medical Doctor] - 1 Week Additional Instructions: CALCIFIC TENDINITIS/TENDINOSIS YOUR XRAY SHOWS A CALCIUM DEPOSIT IN THE TENDONS OF YOUR SHOULDER. THIS COULD BE CONTRIBUTING TO YOUR SYMPTOMS. SUCCESSFUL MANAGEMENT OFTEN CONSISTS OF MEDICATION, A SLING AND PHYSICAL THERAPY. OCCASIONALLY INJECTIONS MAY BE INDICATED. IN RARE CASES SURGERY MAY BE CONSIDERED. The onset of symptoms is usually spontaneous and is associated with the rapid development of excruciating shoulder pain and inability to sleep. The patient is often exceedingly tender to palpation and has extreme pain with any attempted motion of the shoulder. There may be warmth and fullness. Elbow and hand motion are normal and circulation/neurologic examination is intact. FOLLOW-UP WITH ORTHO FOR FURTHER EVALUATION AND MANAGEMENT. - Billing Disposition and Condition Condition: STABLE Disposition: Home
== END 2019-04-03 12:46 | disposition home or self-care (01) ==
LOC: UCEAST 10:38
DX: M75.31 Calcific tendinitis of right shoulder (principal)
CPT/HCPCS: 99212; G0463

== ENCOUNTER 2021-04-27 09:28 | Observation (INO) ==
[2021-04-27 10:12] LABS: ABS Lymphocytes 1.6 10^3/ul (1.0-4.8); ABS Monocytes 0.3 10^3/ul (0-0.8); ABS Neutrophils 1.8 10^3/ul (1.5-7.7); Eosinophil % 0.5 %; Hematocrit 42 % (35-47); Hemoglobin 14.6 g/dL (12.0-16.0); Lymphocyte % 42.6 %; Mean Corpuscular HGB Conc 35 g/dL (31-36); Mean Corpuscular Hemoglobin 31 pg (27-31); Mean Corpuscular Volume 89 fL (80-97); Mean Platelet Volume 8.1 fL (7.4-10.4); Platelet Count 274 10^3/uL (150-450); Red Blood Count 4.72 10^6 /uL (3.70-4.87); Red Cell Distribution Width 13 % (10-15); White Blood Count 3.8 10^3/uL (3.5-10.8)
[2021-04-27 10:21] LABS: Activated Partial Thrombo Time 31.1 seconds (26.0-38.0); INR 1.04 (0.86-1.15)
[2021-04-27 10:31] LABS: Albumin 4.6 g/dL (3.2-5.2); Albumin/Globulin Ratio 1.6 (1-3); Globulin 2.9 g/dL (2-4); Magnesium 2.2 mg/dL (1.9-2.7); Potassium 3.9 mmol/L (3.5-5.0); Total Bilirubin 0.8 mg/dL (0.2-1.0); Total Protein 7.5 g/dL (6.4-8.9)
[2021-04-27] MEDS ORDERED: Lactated Ringers 1000 ml BAG 1,000 ML IV ONE (15:59)
[2021-04-27 16:01] LABS: Rapid COVID-19 Molecular Undetected (Undetected)
[2021-04-27] MEDS: Cholecalciferol (VIT D3) 1,000 unit TAB PO SCH (17:27)
[2021-04-28] MEDS ORDERED: Famotidine IV 10 MG/ML 2 ml VIAL (20 mg) IV SLOW PU ONE (07:34)
[2021-04-28] MEDS: Cholecalciferol (VIT D3) 1,000 unit TAB PO SCH (07:46)
[2021-04-28] MEDS ORDERED: Regadenoson 0.4 MG/5 ML SYRINGE ONE (15:24)
[2021-04-28 17:26] VITALS: BP 117/62
== END 2021-04-28 17:24 | disposition home or self-care (01) ==
LOC: MEDTELE 09:28 → ED 09:28 → MEDTELE 16:44
PROVIDERS: ADMIT Student in an Organized Health Care Education/Training Program; ATTEND Student in an Organized Health Care Education/Training Program